=== PATIENT | female | born 1945 | race Caucasian/White ===

== ENCOUNTER 2016-12-23 09:54 | Emergency (ER) | payer MEDICARE ==
[2016-12-23] MEDS ORDERED: IOPAMIDOL 370 (76%) IV.SOLN 150 ML IV ONE (09:55)
[2016-12-23 10:33] LABS: ABSOLUTE NEUTROPHIL COUNT 3.6 K/mm3 (1.8-7.7); BASO % 0.5 % (0.2-1.0); EOS # 0.1 (0.0-0.5); EOS % 1.1 % (0.9-2.9); HEMATOCRIT 45.5 % (37.0-47.0); HEMOGLOBIN 14.5 gm/l (12.0-16.0); IMM NEUT% 0.2 % (0-1); LYMPH # 2.3 (1.0-4.8); LYMPH % 35.4 % (15-45); MEAN CELL VOLUME 86.8 fl (81.0-99.0); MEAN CORPUSCULAR HEMOGLOBIN 27.7 pg (27.0-31.0); MEAN CORPUSCULAR HGB CONC 31.9 g/dl (33.0-37.0); MEAN PLATELET VOLUME 9.8 fl (7.4-10.4); MONO # 0.4 (0.0-0.8); MONO % 6.6 % (4-12); NEUT % 56.2 % (43-75); PLATELET COUNT 281 K/mm3 (130-400); RED CELL DISTRIBUTION WIDTH 14.1 % (11.5-14.5); SPECIFIC GRAVITY 1.025 (1.001-1.030); URINE BILIRUBIN NEGATIVE (NEGATIVE); URINE BLOOD 1+ (NEGATIVE); URINE GLUCOSE (UA) NEGATIVE (NEGATIVE); URINE LEUKOCYTE ESTERASE 1+ (NEGATIVE); URINE NITRITE NEGATIVE (NEGATIVE); URINE PROTEIN 1+ (NEGATIVE); URINE UROBILINOGEN NORMAL (0-1 mg/dl)
[2016-12-23 10:35] LABS: URINE APPEARANCE HAZY; URINE COLOR YELLOW
[2016-12-23 10:40] LABS: URINE RBC 0-1 /hpf
[2016-12-23 10:41] LABS: URINE BACTERIA RARE
[2016-12-23 11:00] LABS: ALB/GLOB RATIO 1.4 (>1.0); ALBUMIN 4.4 gm/dL (3.5-5.7); CALCIUM 9.7 mg/dL (8.6-10.3)
--- NOTE | 2016-12-23 12:04 | US ---
Exam: Gallbladder ultrasound COMPARISON: 05/28/2013 INDICATION: Right upper quadrant pain for 2 months with intermittent nausea for 2 weeks. FINDINGS: Gallbladder ultrasound was obtained. The gallbladder is normal without stones, sludge or wall thickening. There was a negative sonographic Martel's sign. Common bile duct normal at 4 mm. IMPRESSION: Negative gallbladder ultrasound. Report was uploaded to the EMR at 1201 hours 12/23/2016.
--- NOTE | 2016-12-23 13:14 | CT ---
Exam: CT abdomen and pelvis with contrast COMPARISON: Gallbladder ultrasound 12/23/2016 and MRI lumbar spine 12/22/2015 INDICATION: Abdominal pain. TECHNIQUE: CT examination of the abdomen and pelvis was obtained following the administration 125 mL Isovue-[id number] intravenous contrast. FINDINGS: The bowel is unremarkable and there is no bowel obstruction, free air or free intraperitoneal fluid. Mild hepatic steatosis. Subcentimeter cyst is present within the inferior right lobe of the liver. No additional liver lesions are identified. Gallbladder is unremarkable. There is no intra or extrahepatic ductal or ductal dilatation. Pancreas is within normal limits. There is a 1.4 cm exophytic cyst off of the upper pole of the right kidney. Two subcentimeter low-density lesions are seen within the right kidney and are too small to characterize but are likely cysts. There is no hydronephrosis and kidneys enhance symmetrically. Spleen is normal in size. Uterus is present and within normal limits. There is no adnexal mass. There is no pelvic lymphadenopathy or fluid collection. Lung bases are clear. No worrisome osseous abnormality is identified. IMPRESSION: No acute findings identified to explain abdominal pain. Report was uploaded to the EMR at 1310 hours 12/23/2016.
== END 2016-12-23 14:42 | disposition home or self-care (01) ==
LOC: ED 09:54
DX: R10.11 Right upper quadrant pain (principal); I10 Essential (primary) hypertension; E03.9 Hypothyroidism, unspecified; E78.00 Pure hypercholesterolemia, unspecified
CPT/HCPCS: 83690; 85025; 80053; 81001; 74177; 76705; 99284 ×2; Q9967